=== PATIENT | male | born 1960 | race Hispanic/Latino ===

== ENCOUNTER 2018-01-06 06:05 | Emergency (ER) | payer OTHER ==
[~2018-01-06] VITALS: Ht 170.2 cm; Wt 80.3 kg
[~2018-01-06 06:05] MED LIST: INDOCIN25 MG PO; PERCOCET 325 MG1 TAB PO; PREDNISONE 20MG20 MG PO
[2018-01-06 06:23] VITALS: BP 166/77
--- NOTE | 2018-01-06 06:41 | ED GENERAL ADULT ---
History of Present Illness General Chief Complaint: Sore Throat, Dental Pain Stated Complaint: FEVER,COUGH,SORE THROAT Source: patient Exam Limitations: no limitations Vital Signs & Intake/Output Vital Signs & Intake/Output Vital Signs Date Time Temp Pulse Resp B/P B/P Pulse O2 O2 Flow FiO2 Mean Ox Delivery Rate 01/06 0631 Room Air 01/06 0623 97.3 77 16 166/77 96 Room Air Allergies Coded Allergies: NO KNOWN ALLERGIES (01/03/16) Reconcile Medications Ibuprofen 800 MG TABLET 1 TAB PO TID PRN pain, fever Indomethacin (Indocin) 25 MG CAP 1 TAB PO Q8 PRN PAIN Oseltamivir Phosphate (Tamiflu) 75 MG CAPSULE 1 CAP PO BID influenza OXYCODONE HCL/ACETAMINOPHEN (Percocet 10-325 MG Tablet) 325 MG/10 MG TAB 1 TAB PO Q8 PRN PAIN TAKE ONLY IF PAIN NOT RESPONDING TO OTHER MEDICATIONS Prednisone 20 MG TAB 2 TAB PO DAILY GOUT Triage Note: 57YO MALE TO [facility] W/CO SORE THROAT, GEN'L BODY ACHES SINCE YESTERDAY Triage Nurses Notes Reviewed? yes Onset: Gradual Duration: day(s): Timing: recent history Injury Environment: home Severity: moderate Modifying Factors: Improves With: rest. Associated Symptoms: body aches HPI: 57yo gentleman in prior good health presents with 2 days of body aches, subjective temperatures, dry cough. No dizziness, diarrhea, chest pain, shortness of breath. He is otherwise well. Past History Travel History Traveled to [place] past 21 day No Medical History Any Pertinent Medical History? see below for history Neurological: NONE EENT: NONE Cardiovascular: NONE Respiratory: NONE Gastrointestinal: NONE Hepatic: NONE Renal: NONE Musculoskeletal: NONE Psychiatric: NONE Endocrine: NONE Blood Disorders: NONE Cancer(s): NONE IN SERVICE COORDINATOR/Reproductive: NONE Surgical History Surgical History: non-contributory Psychosocial History What is your primary language Turkish Tobacco Use: Quit >30 days ago Family History Hx Contributory? No Review of Systems Review of Systems Constitutional: Reports: no symptoms. EENTM: Reports: no symptoms. Respiratory: Reports: no symptoms. Cardiovascular: Reports: no symptoms. GI: Reports: no symptoms. Genitourinary: Reports: no symptoms. Musculoskeletal: Reports: no symptoms. Skin: Reports: no symptoms. Neurological/Psychological: Reports: no symptoms. Hematologic/Endocrine: Reports: no symptoms. Immunologic/Allergic: Reports: no symptoms. All Other Systems: Reviewed and Negative Physical Exam Physical Exam General Appearance: well developed/nourished, mild distress Head: atraumatic, normal appearance Eyes: Bilateral: normal appearance. Ears, Nose, Throat: normal pharynx, normal ENT inspection Neck: normal inspection, supple, full range of motion Respiratory: normal breath sounds, chest non-tender, no respiratory distress, quiet respiration Cardiovascular: regular rate/rhythm Gastrointestinal: normal bowel sounds, soft, non-tender Back: normal inspection, normal range of motion Extremities: normal inspection, normal capillary refill, normal range of motion, no edema Neurologic/Psych: no motor/sensory deficits, awake, alert, oriented x 3 Skin: intact, normal color, warm/dry Core Measures ACS in differential dx? No CVA/TIA Diagnosis: No Sepsis Present: No Sepsis Focused Exam Completed? No Progress Differential Diagnoses I considered the following diagnoses in my evaluation of the patient: influenza vs other Plan of Care: Orders Procedure Date/time Status RAPID VIRAL INFLUENZA A 01/06 609 Complete THROAT CULTURE W/QUICK STREP 01/06 609 Active Microbiology 01/06 06 NASOPHARYN: Influenza Virus A & B Rapid Smear - COMP INFLUENZA TYPE B Initial ED EKG: none Departure Departure Disposition: HOME OR SELF CARE Condition: Stable Clinical Impression Primary Impression: Influenza Referrals: Patient Has No Primary Care Dr (PCP/Family) Departure Forms: Customer Survey General Discharge Information Prescriptions: Current Visit Scripts Oseltamivir Phosphate (Tamiflu) 1 CAP PO BID #10 CAP Ibuprofen 1 TAB PO TID PRN pain, fever #30 TAB Comments stable in ER... flu+, wrote for influenza/ibuprofen... close follow up advised. Critical Care Note Critical Care Note Critical Care Time: non-applicable
[2018-01-06] MEDS ORDERED: IBUPROFEN800 M1 PO ×2 (06:51→06:52)
[2018-01-06] MEDS ORDERED: TAMIFLU75 M1 PO (06:52)
== END 2018-01-06 06:57 ==
LOC: ERH 06:05
DX: J11.1 Influenza due to unidentified influenza virus with other respiratory manifestations (principal); Z87.891 Personal history of nicotine dependence
CPT/HCPCS: 87147; 87804; 87804-59